=== PATIENT | male | born 1960 | race Caucasian/White ===

== ENCOUNTER 2017-02-03 12:55 | Emergency (ER) | payer MEDICARE ==
[2017-02-03 13:47] LABS: Basophils % (Auto) 0.8 % (0.0-1.8); Eosinophils % (Auto) 0.3 % (0.0-4.3); Hematocrit 46.6 % (35.5-45.6); Hemoglobin 15.6 gm/dl (11.8-15.2); Mean Corpuscular HGB Conc 33 % (32-34); Mean Corpuscular Hemoglobin 30 pg (28-32); Mean Corpuscular Volume 90 fl (84-94); Platelet Count 282 K/mm3 (140-440); Red Cell Distribution Width 14.9 % (13.2-15.2); White Blood Count 5.5 K/mm3 (4.5-11.0)
[2017-02-03 14:00] LABS: Alanine Aminotransferase 13 units/L (7-56); Albumin/Globulin Ratio 1.6 %; Alkaline Phosphatase 109 units/L (35-129); Anion Gap 18 mmol/L; BUN/Creatinine Ratio 11.11; Bilirubin,Total < 0.20 mg/dL (0.1-1.2); Blood Urea Nitrogen 10 mg/dL (9-20); Calcium 8.8 mg/dL (8.4-10.2); Carbon Dioxide 21 mmol/L (22-30); Chloride 104.1 mmol/L (98-107); Glucose 122 mg/dL (75-100); Potassium 3.5 mmol/L (3.6-5.0); Sodium 140 mmol/L (137-145); Total Protein 6.5 g/dL (6.3-8.2)
[2017-02-03] MEDS ORDERED: DILANTIN PO ONE (15:40)
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
[2017-02-03 16:32] VITALS: BP 106/60
== END 2017-02-03 16:20 | disposition home or self-care (01) ==
LOC: ED 12:55
DX: R56.9 Unspecified convulsions (principal); R42 Dizziness and giddiness; Z91.14 Patient's other noncompliance with medication regimen; F17.200 Nicotine dependence, unspecified, uncomplicated
CPT/HCPCS: 36415; 80053; 80164; 80185; 85025; 93005; 93010; 99283